=== PATIENT | female | born 1990 | race Caucasian/White ===

== ENCOUNTER 2022-05-02 08:30 | Outpatient (CLI) | payer OTHER, SELFPAY ==
--- NOTE | 2022-05-02 08:47 | CT_ITS ---
WS: [id number] CT HEAD TECHNIQUE: Noncontrast and contrast-enhanced CT of the head. CLINICAL INFORMATION: WORST HEADACHE OF LIFE COMPARISON: None. DLP: 2079.[address] scans at [facility] use at least one of these dose optimization techniques: automated e xposure control; mA and/or kV adjustment per patient size (includes targeted exams where dose is matc hed to clinical indication); or iterative reconstruction. FINDINGS: No evidence of intracranial hemorrhage or mass effect. Ventricular system and basal cisterns are beltran nt. Normal gu-white differentiation. No hydrocephalus. No abnormal intracranial enhancement. Normal visualized dural venous sinuses. Mastoid air cells and p aranasal sinuses are well aerated. Normal posterior nasopharynx. CT/CT head wo/w con [id number] IMPRESSION: 1. No evidence of intracranial hemorrhage or mass effect. 2. Normal gu-white differentiation. 3. No abnormal intracranial enhancement. 4. Normal visualized dural venous sinuses. 5. No acute intracranial findings.
[2022-05-02] MEDS: iohexol 350 mg/mL 100 mL Btl IV (09:00)
== END 2022-05-02 08:31 | disposition home or self-care (01) ==
PROVIDERS: Visit Provider Family Medicine
DX: R51.9 Headache, unspecified (principal)
CPT/HCPCS: 70470

== ENCOUNTER → 2022-12-02 08:03 | Outpatient (BNVA) | payer OTHER, SELFPAY | PROVIDERS: Visit Provider Podiatrist Foot & Ankle Surgery | DX: M76.61 Achilles tendinitis, right leg (principal); M92.61 Juvenile osteochondrosis of tarsus, right ankle | CPT/HCPCS: 73610 ==

== ENCOUNTER → 2023-10-10 09:09 | Outpatient (BNVA) | payer OTHER, SELFPAY | PROVIDERS: Visit Provider Family Medicine | DX: R20.0 Anesthesia of skin (principal); R20.2 Paresthesia of skin; Z86.39 Personal history of other endocrine, nutritional and metabolic disease | CPT/HCPCS: 80053; 80061; 82306; 82607; 82746; 83550; 84439; 84443; 85025; 86376 ==

== ENCOUNTER → 2024-03-02 16:06 | Outpatient (BNVA) | payer OTHER, SELFPAY | PROVIDERS: Visit Provider Emergency Medicine | DX: S99.921A Unspecified injury of right foot, initial encounter (principal); W22.8XXA Striking against or struck by other objects, initial encounter | CPT/HCPCS: 73630 ==

== ENCOUNTER 2024-03-17 11:58 | Outpatient (CLI) | payer OTHER, SELFPAY ==
--- NOTE | 2024-03-17 12:15 | US_ITS ---
WS: [id number] US pelv w/transvag [id number] HISTORY: O00.90 - Unspecified ectopic without intrauteri... COMPARISON: None available. Uterus: 8.4 cm x 5.2 cm x 5.2 cm. Uterus is retroverted. There is an intrauterine gestational sac. Within the gestational sac is a feta l pole with a crown-rump length measuring 0.5 cm corresponding to a gestation of 6 weeks and 1 day. F etal heart rate 112 bpm. No free fluid in the cul-de-sac. Neither adnexa is very well visualized due to the GI tract content. Neither ovary is visualized. US/US pelv w/transvag [id number] IMPRESSION: Intrauterine gestation 6 weeks 1 day with an EDC of 11/09/2024. Normal cardiac activity. No adnexal mass.
== END 2024-03-17 11:59 | disposition home or self-care (01) ==
LOC: RAD 11:59
PROVIDERS: PCP Family Medicine; Visit Provider Obstetrics & Gynecology
DX: Z34.91 Encounter for supervision of normal pregnancy, unspecified, first trimester (principal); Z3A.01 Less than 8 weeks gestation of pregnancy
CPT/HCPCS: 76830; 76856; 81025

== ENCOUNTER → 2024-04-14 09:05 | Outpatient (BNVA) | payer OTHER, SELFPAY | PROVIDERS: PCP Family Medicine; Visit Provider Obstetrics & Gynecology | DX: Z34.90 Encounter for supervision of normal pregnancy, unspecified, unspecified trimester (principal); Z3A.00 Weeks of gestation of pregnancy not specified | CPT/HCPCS: 80307; 85025; 86592; 86762; 86803; 86850; 86900; 87086; 87340; 87491; 87591; 87806 ==

== ENCOUNTER → 2024-05-11 08:06 | Outpatient (BNVA) | payer OTHER, SELFPAY | PROVIDERS: PCP Family Medicine; Visit Provider Obstetrics & Gynecology | DX: Z34.90 Encounter for supervision of normal pregnancy, unspecified, unspecified trimester (principal); Z3A.00 Weeks of gestation of pregnancy not specified | CPT/HCPCS: 84315; 87624 ==

== ENCOUNTER → 2024-06-24 10:28 | Outpatient (BNVA) | payer OTHER, SELFPAY | PROVIDERS: PCP Family Medicine; Visit Provider Obstetrics & Gynecology | DX: Z36.2 Encounter for other antenatal screening follow-up (principal); Z3A.20 20 weeks gestation of pregnancy | CPT/HCPCS: 76805 ==

== ENCOUNTER 2024-07-09 07:49 | Outpatient (RCR) | payer OTHER, SELFPAY | END 2024-07-12 23:59 | disposition home or self-care (01) | LOC: SPT 07:49 | PROVIDERS: PCP Family Medicine; Visit Provider Obstetrics & Gynecology | DX: M25.559 Pain in unspecified hip (principal) | CPT/HCPCS: 97161 ==

== ENCOUNTER 2024-07-13 06:00 | Outpatient (RCR) | payer OTHER, SELFPAY | END 2024-08-12 23:59 | disposition home or self-care (01) | LOC: SPT 06:00 | PROVIDERS: PCP Family Medicine; Visit Provider Obstetrics & Gynecology | DX: M25.552 Pain in left hip (principal) | CPT/HCPCS: 97110 ==

== ENCOUNTER → 2024-08-18 09:01 | Outpatient (BNVA) | payer OTHER, SELFPAY | PROVIDERS: PCP Family Medicine; Visit Provider Obstetrics & Gynecology | DX: Z34.90 Encounter for supervision of normal pregnancy, unspecified, unspecified trimester (principal); Z3A.00 Weeks of gestation of pregnancy not specified | CPT/HCPCS: 82950; 84315 ==

== ENCOUNTER → 2024-09-07 08:10 | Outpatient (BNVA) | payer OTHER, SELFPAY | PROVIDERS: PCP Family Medicine; Visit Provider Obstetrics & Gynecology | DX: Z34.90 Encounter for supervision of normal pregnancy, unspecified, unspecified trimester (principal); Z3A.00 Weeks of gestation of pregnancy not specified | CPT/HCPCS: 82951; 82952 ==

== ENCOUNTER → 2024-09-15 15:27 | Outpatient (BNVA) | payer OTHER, SELFPAY | PROVIDERS: PCP Family Medicine; Visit Provider Nurse Practitioner Women's Health | DX: Z34.93 Encounter for supervision of normal pregnancy, unspecified, third trimester (principal); Z3A.34 34 weeks gestation of pregnancy | CPT/HCPCS: 76816 ==

== ENCOUNTER → 2024-09-29 08:47 | Outpatient (BNVA) | payer OTHER, SELFPAY | PROVIDERS: PCP Family Medicine; Visit Provider Nurse Practitioner Women's Health | DX: Z34.80 Encounter for supervision of other normal pregnancy, unspecified trimester (principal); Z3A.00 Weeks of gestation of pregnancy not specified | CPT/HCPCS: 84315; 87086 ==

== ENCOUNTER 2024-10-11 09:18 | Outpatient (CLI) | payer OTHER, SELFPAY ==
[2024-10-11] VITALS (8 sets, daily range): BP systolic 120–135; BP diastolic 78–101; PULSE 100–120; BMI 31.9
== END 2024-10-11 12:13 | disposition home or self-care (01) ==
LOC: OPOB 09:27 → OBGYN 09:28
PROVIDERS: PCP Family Medicine; Visit Provider Obstetrics & Gynecology
DX: O16.9 Unspecified maternal hypertension, unspecified trimester (principal); O26.851 Spotting complicating pregnancy, first trimester; Z3A.00 Weeks of gestation of pregnancy not specified
CPT/HCPCS: 59025; 99211

== ENCOUNTER → 2024-10-12 09:20 | Outpatient (BNVA) | payer OTHER, SELFPAY | PROVIDERS: PCP Family Medicine; Visit Provider Nurse Practitioner Women's Health | DX: O26.893 Other specified pregnancy related conditions, third trimester (principal); Z3A.35 35 weeks gestation of pregnancy | CPT/HCPCS: 76816 ==

== ENCOUNTER 2024-10-14 09:31 | Outpatient (CLI) | payer OTHER, SELFPAY ==
[2024-10-14 09:30] VITALS: RESP 17; BMI 32.1
[2024-10-14 09:40] VITALS: BP 143/88; PULSE 109
[2024-10-14 09:56] VITALS: BP 130/83; PULSE 94
[2024-10-14 10:11] VITALS: BP 131/77; PULSE 101
[2024-10-14 10:26] VITALS: BP 108/72; PULSE 91
== END 2024-10-14 10:35 | disposition home or self-care (01) ==
LOC: OPOB 09:31 → OBGYN 09:32
PROVIDERS: PCP Family Medicine; Visit Provider Obstetrics & Gynecology
DX: O16.9 Unspecified maternal hypertension, unspecified trimester (principal); Z3A.00 Weeks of gestation of pregnancy not specified
CPT/HCPCS: 59025; 99211

== ENCOUNTER 2024-10-18 10:16 | Outpatient (CLI) | payer OTHER, SELFPAY ==
[2024-10-18 10:23] VITALS: RESP 18
[2024-10-18 10:24] VITALS: BMI 32.1
[2024-10-18 10:25] VITALS: BP 134/86; PULSE 97
[2024-10-18 10:46] VITALS: BP 130/89; PULSE 100
[2024-10-18 10:55] VITALS: RESP 18
== END 2024-10-18 10:57 | disposition home or self-care (01) ==
LOC: OPOB 10:18 → OBGYN 10:21
PROVIDERS: PCP Family Medicine; Visit Provider Obstetrics & Gynecology
DX: O16.9 Unspecified maternal hypertension, unspecified trimester (principal); Z3A.00 Weeks of gestation of pregnancy not specified
CPT/HCPCS: 59025; 80053; 84315; 85025; 87081

== ENCOUNTER 2024-10-21 11:45 | Outpatient (CLI) | payer OTHER, SELFPAY ==
[2024-10-21 11:50] VITALS: BP 143/90; PULSE 94
[2024-10-21 11:52] VITALS: BMI 32.1
[2024-10-21 12:05] VITALS: BP 137/84; PULSE 99
[2024-10-21 12:20] VITALS: BP 132/82; PULSE 93
[2024-10-21 12:22] VITALS: BP 132/82; PULSE 83
[2024-10-21 12:38] LABS: Urine Total Protein 7.2 mg/dL (0-150)
[2024-10-21 12:40] LABS: Total Volume, Urine 1500 mL
== END 2024-10-21 12:25 ==
LOC: OPOB 11:47 → OBGYN 11:47
PROVIDERS: PCP Family Medicine; Visit Provider Obstetrics & Gynecology
DX: O16.9 Unspecified maternal hypertension, unspecified trimester (principal); Z3A.00 Weeks of gestation of pregnancy not specified
CPT/HCPCS: 59025; 84156

== ENCOUNTER → 2024-10-26 15:02 | Outpatient (BNVA) | payer OTHER, SELFPAY | PROVIDERS: PCP Family Medicine; Visit Provider Obstetrics & Gynecology | DX: Z34.80 Encounter for supervision of other normal pregnancy, unspecified trimester (principal) | CPT/HCPCS: 84315 ==

== ENCOUNTER 2024-10-28 09:05 | Outpatient (CLI) | payer OTHER, SELFPAY ==
[2024-10-28] VITALS (12 sets, daily range): BP systolic 125–144; BP diastolic 77–97; PULSE 92–113; RESP 17; BMI 32.1
== END 2024-10-28 11:47 | disposition home or self-care (01) ==
LOC: OPOB 09:06 → OBGYN 09:07
PROVIDERS: PCP Family Medicine; Visit Provider Obstetrics & Gynecology
DX: O16.9 Unspecified maternal hypertension, unspecified trimester (principal); Z3A.00 Weeks of gestation of pregnancy not specified
CPT/HCPCS: 59025; 99211

== ENCOUNTER 2024-10-28 18:18 | Inpatient (IN) | payer OTHER, SELFPAY ==
[2024-10-28] VITALS (11 sets, daily range): BP systolic 128–153; BP diastolic 88–99; PULSE 89–111; BMI 71.1
[2024-10-28 19:02] LABS: Basophils % 0.2 %; Eosinophils % 0.5 %; Hematocrit 36.6 % (36-47); Lymphocytes # 2.1 10^3/uL (0.8-4.8); Lymphocytes % 26.2 %; Mean Corpuscular HGB Conc 33.3 g/dL (30-55); Mean Corpuscular Hemoglobin 27.9 pg (27-33); Mean Corpuscular Volume 83.8 fl (85-98); Mean Platelet Volume 10.5 fL (7.4-10.4); Monocytes # 0.7 10^3/uL (0.2-0.9); Monocytes % 8.1 %; Neutrophils # 5.24 10^3/uL (1.8-7.7); Neutrophils % 64.6 %; Nucleated Red Blood Cells % 0 %; Platelet Count 302 10^3/cmm (157-399); Red Blood Count 4.37 10^6/uL (3.85-5.65); Red Cell Distribution Width 13.9 % (12.1-15.1); White Blood Count 8.12 10^3/uL (3.29-11.43)
--- NOTE | 2024-10-28 19:40 | PM.OBGYHP ---
Providers/Chief Complaint Admitting Physician: Toney Miles MD Primary AUTOMATIC VULCANIZING LEAD OPERATOR: Toney Miles MD Primary Care Provider: Pelon Grossman MD Chief Complaint: IOL HPI AUTOMATIC VULCANIZING LEAD OPERATOR History of Present Illness Vee Ryan is a 34 year old female A2 EDC November 10, 2024 At 38 w 1 d Has been followed for mildly elevated BPs Seen in L&D for BP check and NST today Found to have significantly elevated BPs Now admitted for induction of labor No c/o No headache, blurry vision, abdominal pain, swelling + active movements Present Details : 7 Para: 4 Labs Rubella: Immune RPR: Negative GBS: Negative Medications/Allergies Home Medications Medication Instructions Recorded Confirmed Last Taken Type PNV 153-FA 400 mcg-om3 35 mg-dha tab PO 08/18/24 10/26/24 Unknown History 25 mg-epa 5 mg-fish oil chew tablet ( Gummies) bromocriptine 5 mg capsule 5 mg PO BID #20 caps 10/30/24 Unknown Rx Allergies Allergy/AdvReac Type Severity Reaction Status Date / Time Penicillins Allergy rash Verified 10/26/24 12:53 Sulfa (Sulfonamide Allergy edema Verified 10/26/24 12:53 Antibiotics) PFSH AUTOMATIC VULCANIZING LEAD OPERATOR PFSH: Medical History Migraine headache with aura Surgical History H/O tubal ligation Status post labral repair of shoulder LEFT Family History Grandfather Cancer Paternal-unknown Grandfather Cancer Paternal-unknown Heart disease Stroke Mother Heart disease Hypertension Stroke Other Autoimmune disease Diabetes Denies family history of Colon cancer Ovarian cancer Breast cancer Uterine cancer Thyroid disease Social History Smoking and tobacco/nicotine status: never used tobacco/nicotine History History History 7 Term 4 0 Miscarriages/Ectopic 2 Living Children 4 Care YESSICA Calculator Estimated Delivery Date Method Current WG Current Estimate 11/10/24 LMP (Certain) 38w 4d Other Estimates 11/09/24 Ultrasound #1 38w 5d Specific Issues/Plans MIGRAINES WITH AURA S/P TUBAL LIGATION: Bilateral partial salpingectomy 08/09/19, patho report confirmed bilateral fallopian tubes removed Hx of GESTATIONAL HYPERTENSION: Hx of gestational HTN in x2, inductions at 36 and 37 weeks gestation ELEVATED 1 HOUR GLUCOSE TEST: 08/18/24 175, 3 hr test normal FUNDAL HEIGHT HIGH FOR DATES: measuring 3 cm ahead at 30 week and 34 week appt Vitals/I&O/Wt Last Vital Signs Temp 97.8 F 10/30/24 15:19 Pulse 95 10/30/24 15:19 Resp 16 10/30/24 15:19 BP 123/82 10/30/24 15:19 Pulse Ox 97 10/30/24 15:19 O2 Del Method Room Air 10/30/24 15:05 Physical Exam Narrative: Weight 200 lbs; 5?6? BP 135 / 97; 138 / 88; 144 / 91 General comfortable, awake, alert Lungs: clear Cor: RRR Abd: nontender FH 37 cm, cephalic Cervix: 2 / 50% / -3 Ext: no edema External monitor: heart tracing good variability, + accelerations Data 10/30/24 01:28 Results Labs OB ([facility]): Obstetrics US 10/12/24 Blood Type A Positive 10/28/24 Antibody Screen Negative 10/28/24 Hct 32.7 % (36-47) L 10/30/24 Hgb 10.60 g/dL (11.27-16.99) L 10/30/24 Rho(D) Type Rh positive 10/28/24 Plt Count 259 10^3/cmm (157-399) 10/30/24 Hep Bs Antigen Non-reactive (Nonreactive) 04/14/24 Hepatitis C Antibody Non-reactive (Nonreactive) 04/14/24 Rubella IgG Antibody 143.2 IU/mL (0.0-10.0) H 04/14/24 RPR Nonreactive (Nonreactive) 04/14/24 HIV 1&2 Ab & HIV 1 Ag Non-reactive (Non-Reactiv) 04/14/24 TSH 0.89 uIU/mL (0.27-4.20) 10/10/23 Free T4 1.28 ng/dL (0.82-1.77) 10/10/23 C.trachomatis RNA (TMA) Not detected (NOT DETECTED) 04/14/24 N.gonorrhoeae RNA (TMA) Not detected (NOT DETECTED) 04/14/24 T. vaginalis Amp RNA Not detected (NOT DETECTED) 04/14/24 Chlamydia/GC Comment See note 04/14/24 Cystic Fibrosis Screen Negative 04/14/24 Glucose 1 Hr 50 gm 175 mg/dL (85-140) H 08/18/24 Gest Glucose Tolerance mg/dL 09/07/24 HCG, Qual Positive (Negative) H 03/17/24 Urine Opiates Screen Negative ng/mL (Negative) 04/14/24 Ur Barbiturates Screen Negative ng/mL (Negative) 04/14/24 Ur Phencyclidine Scrn Negative ng/mL (Negative) 04/14/24 Ur Amphetamines Screen Negative ng/mL (Negative) 04/14/24 U Benzodiazepines Scrn Negative ng/mL (Negative) 04/14/24 Urine Cocaine Screen Negative ng/mL (Negative) 04/14/24 U Marijuana (THC) Screen Negative ng/mL (Negative) 04/14/24 Micro Urine Specimen 09/29/24 Pap Smear Interpret See note 05/11/24 A&P Assessment and plan (1) Encounter for induction of labor: 38 w 1 d Elevated BPs No associated severe features such as headache, swelling Plan admit for labor induction Attestations Medical Necessity Statement*: patient at 38 w 1 d with elevated BPs, admitted for induction of labor Coding Level of Care Code Acute Code for Chg Fwd Diagnoses Encounter for induction of labor Z34.90 Time Spent (min) 60
[2024-10-28] MEDS: calcium carbonate 500 mg Chew Tablet 1000 MG PO (22:15)
[2024-10-29] VITALS (32 sets, daily range): BP systolic 116–157; BP diastolic 69–104; PULSE 80–110; RESP 15–17; TEMP 36.6–36.9; O2SAT 96–97
[2024-10-29] MEDS: alum-mag-hydroxide-sime 30 mL UDC PO (03:10)
--- NOTE | 2024-10-29 03:15 | P.PN_ITS ---
[employer] ARCHITECT Subjective 2 Subjective: Interval history: Fetus reassuring Having mild ? moderate uterine contractions Cervix: 3-4 cm / 75% / -3 Labor: Station: -1 Amniotic Membrane Status: Ruptured Monitor Mode: External Contraction Pattern: Irregular Status: Category I Vitals/I&O/Wt Last Vital Signs Temp 97.8 F 10/30/24 15:19 Pulse 95 10/30/24 15:19 Resp 16 10/30/24 15:19 BP 123/82 10/30/24 15:19 Pulse Ox 97 10/30/24 15:19 O2 Del Method Room Air 10/30/24 15:05 Data 10/30/24 01:28 A&P Assessment and plan (1) Encounter for induction of labor: Attestations 2 Medical Necessity Statement*: patient at 38 w 1 d with elevated BPs, admitted for induction of labor Coding Level of Care Code Acute Code for Chg Fwd Diagnoses Encounter for induction of labor Z34.90 Time Spent (min) 20
[2024-10-29] MEDS: miSOPROStol 100 mcg tablet 25 MCG VAGINAL (04:24)
--- NOTE | 2024-10-29 12:05 | PM.OBGYPN ---
DIRECTOR OF CURRICULUM AND INSTRUCTION Subjective Subjective: Interval history: Fetus reassuring Cervix: 4-5 cm / 75% / -2 AROM, clear fluid Labor: Station: -1 Amniotic Membrane Status: Ruptured Monitor Mode: External Contraction Pattern: Irregular Status: Category I Vitals/I&O/Wt Last Vital Signs Temp 97.8 F 10/30/24 15:19 Pulse 95 10/30/24 15:19 Resp 16 10/30/24 15:19 BP 123/82 10/30/24 15:19 Pulse Ox 97 10/30/24 15:19 O2 Del Method Room Air 10/30/24 15:05 Data 10/30/24 01:28 A&P Assessment and plan (1) Encounter for induction of labor: Attestations Medical Necessity Statement*: patient at 38 w 1 d with elevated BPs, admitted for induction of labor Coding Level of Care Code Acute Code for Chg Fwd Diagnoses Encounter for induction of labor Z34.90 Time Spent (min) 30
[2024-10-29] MEDS: hyDROXYzine 25 mg Capsule 50 MG PO (13:05)
--- NOTE | 2024-10-29 13:10 | PC.NURSE ---
While pt standing at the side of the tub with at her side, this nurse requests if she would come to the bedside so I could monitor baby and contractions while she stood at bedside. Pt refused and said she would be staying there. This nurse verbalized understanding and instructed the to pull the emergency light cord next to toilet if immediate assistance were needed, verbalized understanding.
--- NOTE | 2024-10-29 13:45 | PM.DELIVERY ---
Delivery Note: Date of delivery: October 29, 2024 Pre-delivery diagnoses: 38 w 1 d elevated BPs induction of labor Post-delivery diagnoses: 38 w 1 d elevated BPs induction of labor vaginal delivery Procedure: induction of labor vaginal delivery Op report anesthesia: None Delivering Physician: Toney Miles MD Estimated blood loss (mL): 300 Findings: , vigorous Normal placenta and cord No episiotomy / lacerations EBL: 300 cc No complications Pre-Delivery Course: normal labor course fetus reassuring throughout Delivery: vaginal Post-Delivery Status: good History History History 7 Term 4 0 Miscarriages/Ectopic 2 Living Children 4 A&P Assessment and plan (1) Vaginal delivery: Coding Level of Care Code Acute Code for Chg Fwd Diagnoses Vaginal delivery O80 Time Spent (min) 60
[2024-10-29] MEDS: ibuprofen 800 mg tablet PO ×2 (14:38→20:07)
[2024-10-29] MEDS: lidocaine 2% INJ 20 mL INJECTION (14:45)
[2024-10-29] MEDS: docusate sodium 100 mg Capsule PO (20:07)
[2024-10-29] MEDS: HYDROcodone-acetaminophen 5-325 mg Tablet PO (21:41)
[2024-10-30] MEDS: acetaminophen 325 mg Tablet 650 MG PO ×2 (01:29→12:30)
[2024-10-30 01:59] LABS: Hematocrit 32.7 % (36-47); Mean Corpuscular HGB Conc 32.4 g/dL (30-55); Mean Corpuscular Volume 86.5 fl (85-98); Platelet Count 259 10^3/cmm (157-399); Red Blood Count 3.78 10^6/uL (3.85-5.65); Red Cell Distribution Width 14.2 % (12.1-15.1); White Blood Count 11.01 10^3/uL (3.29-11.43)
[2024-10-30 04:48] VITALS: BP 121/79; PULSE 86; RESP 16; TEMP 36.7; O2SAT 97
[2024-10-30] MEDS: ibuprofen 800 mg tablet PO (08:10)
[2024-10-30] MEDS: PRENATAL VIT NO.130/IRON/FOLIC 1 EACH TABLET PO (08:10)
[2024-10-30] MEDS: docusate sodium 100 mg Capsule PO (08:10)
[2024-10-30 10:30] VITALS: BP 144/93; PULSE 96; RESP 17; TEMP 36.9; O2SAT 98
--- NOTE | 2024-10-30 12:25 | PM.OBGYPN ---
PRINTING MACHINE OPERATOR TAPE RULES Subjective Subjective: Interval history: no c/o no bleeding, pain eating, voiding, ambulating well caring for without any problems Labor: Station: -1 Amniotic Membrane Status: Ruptured Monitor Mode: External Contraction Pattern: Irregular Status: Category I Vitals/I&O/Wt Last Vital Signs Temp 97.8 F 10/30/24 15:19 Pulse 95 10/30/24 15:19 Resp 16 10/30/24 15:19 BP 123/82 10/30/24 15:19 Pulse Ox 97 10/30/24 15:19 O2 Del Method Room Air 10/30/24 15:05 Physical Exam Narrative: afebrile, VS normal comfortable, awake, alert Abd: soft, nontender. fundus firm Ext: no edema; nontender Data 10/30/24 01:28 A&P Assessment and plan (1) Vaginal delivery: PPD #1 doing well discharge to home today instructions and precautions given call/return if fever, chills, headache, blurry vision, nausea, vomiting, abdominal pain; vaginal bleeding or discharge; shortness of breath, chest pain, leg pains or swelling; inability to void, perineal pain or swelling; feelings of depression or mood changes; thoughts of suicide or harming others; inability to care for baby. f/u in 6 weeks or PRN Attestations Medical Necessity Statement*: patient s/p vaginal delivery, plan to discharge to home today Coding Level of Care Code Acute Code for Chg Fwd Diagnoses Vaginal delivery O80 Time Spent (min) 20
--- NOTE | 2024-10-30 12:30 | PM.OBGYDC ---
Discharge Providers SUPPLEMENTAL NURSE Date of Admission: 10/28/24 18:18 Date of Discharge: 10/30/24 Attending Provider at Admission: Toney Miles MD Attending Provider at Discharge: Toney Miles MD Consults: none Primary SUPPLEMENTAL NURSE: Toney Miles MD Primary Care Provider: Pelon Grossman MD Diagnoses at Discharge Discharge Diagnosis (1) Vaginal delivery: Details from hospital stay: 34 y.o. A2 EDC November 10, 2024 At 38 w 1 d Has been followed for mildly elevated BPs Seen in L&D for BP check and NST on October 28, 2023 Found to have significantly elevated BPs diagnosed with mild preeclampsia without severe features patient was admitted for induction of labor patient was given one dose of cytotec 25 ug intravaginal fetus was reassuring throughout She proceeded to have vaginal delivery without any complications; there were no lacerations patient did well and was discharged to home on the first day Status: Acute Reason for Visit Reason for Visit: IOL Brief History: 34 y.o. A2 EDC November 10, 2024 At 38 w 1 d Has been followed for mildly elevated BPs Seen in L&D for BP check and NST on October 28, 2023 Found to have significantly elevated BPs diagnosed with mild preeclampsia without severe features patient was admitted for induction of labor Hospital Course Hospital Course 34 y.o. A2 EDC November 10, 2024 At 38 w 1 d Has been followed for mildly elevated BPs Seen in L&D for BP check and NST on October 28, 2023 Found to have significantly elevated BPs diagnosed with mild preeclampsia without severe features patient was admitted for induction of labor patient was given one dose of cytotec 25 ug intravaginal fetus was reassuring throughout She proceeded to have vaginal delivery without any complications; there were no lacerations patient did well and was discharged to home on the first day Information Peripartum Data: Delivery Method: Vaginal Laceration description: None Episiotomy description: None complications: none Physical Exam Narrative: afebrile, VS normal comfortable, awake, alert Abd: soft, nontender. fundus firm Ext: no edema; nontender History History History 7 Term 4 0 Miscarriages/Ectopic 2 Living Children 4 Discharge Data Studies Completed and Pending Laboratory Results WBC 11.01 10^3/uL (3.29-11.43) 10/30/24: RBC 3.78 10^6/uL (3.85-5.65) L 10/30/24: Hgb 10.60 g/dL (11.27-16.99) L 10/30/24: Hct 32.7 % (36-47) L 10/30/24: MCV 86.5 fl (85-98) 10/30/24: MCH 28.0 pg (27-33) 10/30/24: MCHC 32.4 g/dL (30-55) 10/30/24: RDW 14.2 % (12.1-15.1) 10/30/24: Plt Count 259 10^3/cmm (157-399) 10/30/24: MPV 11.0 fL (7.4-10.4) H 10/30/24: Neut % (Auto) 64.6 % 10/28/24 18:40 Lymph % (Auto) 26.2 % 10/28/24 18:40 Stevens % (Auto) 8.1 % 10/28/24 18:40 Eos % (Auto) 0.5 % 10/28/24 18:40 Baso % (Auto) 0.2 % 10/28/24 18:40 Neut # (Auto) 5.24 10^3/uL (1.8-7.7) 10/28/24 18:40 Lymph # (Auto) 2.1 10^3/uL (0.8-4.8) 10/28/24 18:40 Stevens # (Auto) 0.7 10^3/uL (0.2-0.9) 10/28/24 18:40 Eos # (Auto) 0.0 10^3/uL (0.0-0.8) 10/28/24 18:40 Baso # (Auto) 0.0 10^3/uL (0.0-0.1) 10/28/24 18:40 Nucleated RBC % (auto) 0 % 10/28/24 18:40 Nucleated RBCs # 0.0 /100WBC 10/28/24 18:40 Blood Type A Positive 10/28/24 18:40 Rho(D) Type Rh positive 10/28/24 18:40 Antibody Screen Negative 10/28/24 18:40 Procedures Performed induction of labor vaginal delivery Vitals Last Vital Signs Temp 97.8 F 10/30/24 15:19 Pulse 95 10/30/24 15:19 Resp 16 10/30/24 15:19 BP 123/82 10/30/24 15:19 Pulse Ox 97 10/30/24 15:19 O2 Del Method Room Air 10/30/24 15:05 Results Labs OB ([facility]): Obstetrics US 10/12/24 Blood Type A Positive 10/28/24 Antibody Screen Negative 10/28/24 Hct 32.7 % (36-47) L 10/30/24 Hgb 10.60 g/dL (11.27-16.99) L 10/30/24 Rho(D) Type Rh positive 10/28/24 Plt Count 259 10^3/cmm (157-399) 10/30/24 Hep Bs Antigen Non-reactive (Nonreactive) 04/14/24 Hepatitis C Antibody Non-reactive (Nonreactive) 04/14/24 Rubella IgG Antibody 143.2 IU/mL (0.0-10.0) H 04/14/24 RPR Nonreactive (Nonreactive) 04/14/24 HIV 1&2 Ab & HIV 1 Ag Non-reactive (Non-Reactiv) 04/14/24 TSH 0.89 uIU/mL (0.27-4.20) 10/10/23 Free T4 1.28 ng/dL (0.82-1.77) 10/10/23 C.trachomatis RNA (TMA) Not detected (NOT DETECTED) 04/14/24 N.gonorrhoeae RNA (TMA) Not detected (NOT DETECTED) 04/14/24 T. vaginalis Amp RNA Not detected (NOT DETECTED) 04/14/24 Chlamydia/GC Comment See note 04/14/24 Cystic Fibrosis Screen Negative 04/14/24 Glucose 1 Hr 50 gm 175 mg/dL (85-140) H 08/18/24 Gest Glucose Tolerance mg/dL 09/07/24 HCG, Qual Positive (Negative) H 03/17/24 Urine Opiates Screen Negative ng/mL (Negative) 04/14/24 Ur Barbiturates Screen Negative ng/mL (Negative) 04/14/24 Ur Phencyclidine Scrn Negative ng/mL (Negative) 04/14/24 Ur Amphetamines Screen Negative ng/mL (Negative) 04/14/24 U Benzodiazepines Scrn Negative ng/mL (Negative) 04/14/24 Urine Cocaine Screen Negative ng/mL (Negative) 04/14/24 U Marijuana (THC) Screen Negative ng/mL (Negative) 04/14/24 Micro Urine Specimen 09/29/24 Pap Smear Interpret See note 05/11/24 Discharge Plan Discharge Patient Disposition: Home Condition: Stable Prescriptions: New bromocriptine 5 mg capsule 5 mg PO BID Qty: 20 0RF Rx Instructions: must administer with a meal/food Continued Gummies 400 mcg-35 mg- 25 mg-5 mg tablet,chewable PO Discontinued nifedipine [Procardia XL] 30 mg tablet extended release 24hr 30 mg PO DAILY Qty: 30 1RF Discharge Orders: Discharge Order (Routine); Ordered 10/30/24 Ordered By: Toney Miles Referrals: Toney Miles MD [Physician] - 6 Weeks (Please call Friday to set up a follow up appointment to see Dr. Miles in 6 weeks.) Discharge Diet: Usual diet Discharge Activity: Increase activity as tolerated Patient Instructions: Depression (DC), Opioid Safety (DC), Preeclampsia and Eclampsia After Delivery (GEN), Hemorrhage (DC), OB Discharge Report, OB Food/Drug Interaction Guide, Opioid Safety, OB Home Care, OB Vaginal Deliveries - [facility], Abnormal Bleeding Discharge Attestations SUPPLEMENTAL NURSE Time Spent in Discharge Care*: less than 30 min Coding Level of Care Code Acute Code for Chg Fwd Diagnoses Vaginal delivery O80 Time Spent (min) 20
[2024-10-30 15:05] VITALS: BP 123/82; PULSE 95; RESP 16; TEMP 36.6; O2SAT 97
[2024-10-30 15:19] VITALS: BP 123/82; PULSE 95; RESP 16; TEMP 36.6; O2SAT 97
== END 2024-10-30 15:19 | disposition home or self-care (01) | DRG 807 ==
LOC: OPOB 18:18 → OBGYN 18:18
PROVIDERS: Admitting Provider Obstetrics & Gynecology; PCP Family Medicine; Visit Provider Obstetrics & Gynecology
DX: O13.4 Gestational [pregnancy-induced] hypertension without significant proteinuria, complicating childbirth (principal); Z37.0 Single live birth; Z3A.38 38 weeks gestation of pregnancy; O75.89 Other specified complications of labor and delivery; G43.109 Migraine with aura, not intractable, without status migrainosus
CPT/HCPCS: 36415; 59025; 59409; 85025; 85027; 86850; 86900; 99211

== ENCOUNTER 2024-12-27 10:10 | Outpatient (CLI) | payer OTHER, SELFPAY ==
--- NOTE | 2024-12-27 10:17 | XRR_ITS ---
PROCEDURE INFORMATION: Exam: XR Left Hip Exam date and time: 12/27/2024 10:36 AM Age: 34 years old Clinical indication: No specific injury, left hip pain x1 year in joint TECHNIQUE: Imaging protocol: Radiologic exam of the left hip. Views: 2 or 3 views hip with pelvis when performed. COMPARISON: US pelv w/transvag [id number] 03/17/2024 12:22 PM FINDINGS: Bones/joints: No acute fracture or malalignment. No worrisome lytic or blastic osseous lesion. No appreciable cortical erosion or periosteal reaction. Joint spaces are preserved. Soft tissues: No appreciable radiopaque foreign body or gas. XR/XR hip LT 2-3V wo/w pel* [id number] IMPRESSION: No acute fracture or malaligment.
== END 2024-12-27 10:11 | disposition home or self-care (01) ==
LOC: RAD 10:13
PROVIDERS: PCP Family Medicine; Visit Provider Family Medicine
DX: G43.109 Migraine with aura, not intractable, without status migrainosus (principal)
CPT/HCPCS: 73502

== ENCOUNTER → 2025-01-10 07:59 | Outpatient (BNVA) | payer OTHER, SELFPAY | PROVIDERS: PCP Family Medicine; Visit Provider Nurse Practitioner | DX: M25.552 Pain in left hip (principal); R29.4 Clicking hip | CPT/HCPCS: 73502 ==

== ENCOUNTER 2025-01-14 10:04 | Outpatient (CLI) | payer OTHER, SELFPAY ==
--- NOTE | 2025-01-14 10:15 | MR_ITS ---
WS: [id number] EXAMINATION: MR hip LT wo con* [id number] ORDER DATE: 01/14/2025 10:14 AM COMPARISON: None. HISTORY: left hip pain CONTRAST: None. TECHNIQUE: Coronal STIR of the Pelvis. Coronal proton density, coronal T1, axial T2 fat sat, axial T1, sagittal T2 fat sat, and sagittal T1 performed of the hip FINDINGS: Normal bone marrow signal in the sacrum and bony pelvis. Normal bone marrow signal in the femoral heads and necks bilaterally. Normal bone marrow signal in the pubic rami and acetabulum. No acute fractures. No evidence of avascular necrosis. No edema in the sacroiliac joints. Trace edema about the LEFT greater trochanter can be seen with trochanteric bursitis. No significant surrounding edema. Slightly heterogeneous bone marrow signal can be seen with anemia and smoking. MR/MR hip LT wo con* [id number] IMPRESSION: 1. Normal bone marrow signal in the bony pelvis and sacrum. No acute fractures . 2. Normal LEFT femoral head and neck. No evidence of avascular necrosis. 3. RIGHT hip is normal in appearance. 4. Tiny trace of edema about the LEFT greater trochanter can be seen with troc hanteric bursitis. No fluid collections.
== END 2025-01-14 10:05 | disposition home or self-care (01) ==
PROVIDERS: PCP Family Medicine; Visit Provider Nurse Practitioner
DX: M25.552 Pain in left hip (principal)
CPT/HCPCS: 73721

== ENCOUNTER → 2025-02-11 12:02 | Outpatient (BNVA) | payer OTHER, BC, MEDICAID, SELFPAY | PROVIDERS: PCP Family Medicine; Visit Provider Specialist | DX: R29.4 Clicking hip (principal); M25.552 Pain in left hip | CPT/HCPCS: 77002 ==

== ENCOUNTER 2025-02-15 06:17 | Day surgery (SDC) | payer OTHER, BC, MEDICAID, SELFPAY ==
--- NOTE | 2025-02-14 22:12 | P.HP_ITS ---
Same Day Surgery H&P Indication for Procedure/HPI DATE OF PROCEDURE: February 14, 2025 CHIEF COMPLAINT/INDICATIONFOR SURGICAL PROCEDURE: desires permanent sterilization PREOP DIAGNOSIS: desires permanent sterilization PLANNED PROCEDURE: Operation Date: 02/15/25 07:50 Proposed Procedures p Laparoscopic Salpingectomy 10845, Z30.2(Bilateral) - Toney Miles MD Medications/Allergies* Home Medications ?Medication ?Instructions ?Recorded ?Confirmed ?Type sumatriptan succinate 50 mg tablet 50 mg PO DIRECTE D 02/14/25 02/14/25 History Allergies/Adverse Reactions Allergy/AdvReac Type Severity Reaction Status Date / Time Penicillins Allergy rash Verified 02/11/25 12:06 Sulfa (Sulfonamide Allergy edema Verified 02/11/25 12:06 Antibiotics) Pertinent History/Comorbid Conditions* Medical History (Updated 01/15/25 @ 17:10 by Janeth Valenzuela TURN OUT-) Clicking of left hip Vaginal delivery Encounter for induction of labor Migraine headache with aura Surgical History (Updated 10/10/23 @ 08:32 by Pelon Grossman MD) H/O tubal ligation Status post labral repair of shoulder LEFT Family History (Updated 03/17/24 @ 09:25 by Jany Brock LPN) Diabetes Autoimmune disease Heart disease Grandfather Mother Cancer Grandfather Paternal-unknown Grandfather Paternal-unknown Hypertension Mother Stroke Grandfather Mother Denies family history of Colon cancer Ovarian cancer Breast cancer Uterine cancer Thyroid disease Social History Smoking and tobacco/nicotine status: never used tobacco/nicotine Pertinent Exam Findings alert, oriented x 3, clear to auscultation bilaterally and regular rate & rhythm Recommendations Surgery/Procedure today Coding Level of Care Code Acute Code for Chg Fwd
[2025-02-15] VITALS (8 sets, daily range): BP systolic 130–155; BP diastolic 91–101; PULSE 59–86; RESP 16–18; TEMP 36.1–36.4; O2SAT 94–99; BMI 27.7
[2025-02-15] MEDS: sodium chloride 0.9% 1,000 ML 30 ML IV (06:40)
[2025-02-15 06:57] LABS: OR HCG Qualitative Urine Negative (Negative)
[2025-02-15] MEDS: scopolamine 1 mg PATCH 1 PATCH TRANSDERMA (06:58)
--- NOTE | 2025-02-15 06:58 | W.PM.OPSUD ---
Surgery/Procedure H&P Update DATE OF PROCEDURE: February 15, 2025 DATE H&P PERFORMED: 02/15/25 H&P UPDATE INFORMATION: I have reviewed H&P completed within last 30 days, I have examined patient prior to procedure and No changes to prior documentation PREOP DIAGNOSIS: desires permanent sterilization PLANNED PROCEDURE: Operation Date: 02/15/25 07:50 Proposed Procedures p Laparoscopic Salpingectomy 35154, Z30.2(Bilateral) - Toney Miles MD
--- NOTE | 2025-02-15 07:18 | P.ANESASSM_ITS ---
Pre-Anesthetic Assessment Height/Weight: Height 1.68 m Weight 78.018 kg Temp Pulse Resp BP Pulse Ox O2 Del Method 97.3 F L 74 18 147/98 99 Room Air 02/15/25 06:34 02/15/25 06:34 02/15/25 06:34 02/15/25 06:34 02/15/25 06:34 02/15/25 06:35 Preop Diagnosis: desires permanent sterilization Operation Date: 02/15/25 07:50 Proposed Procedures p Laparoscopic Salpingectomy 76355, Z30.2(Bilateral) - Toney Miles MD Familial anesthetic complications: none Was Beta Bren taken within 24 hours: N/A Was Clonidine taken within 24 hours: N/A Last intake: Intake Last Liquid Date 02/14/25 Last Liquid Time 21:00 Last Solid Date 02/14/25 Last Solid Time 21:00 Last Intake: 21:00 Social No alcohol and No tobacco Exam alert, oriented x 3, clear to auscultation bilaterally and regular rate & rhythm Airway Submandibular: within normal limits Cervical ROM: within normal limits Mallampati: Class II Dentition: full History/ROS No significant history except as noted Pulmonary None reported CV/HEM None reported None reported Hepatic None reported GI None reported Metabolic None reported Musc/skel None reported Neuropsych None reported Anesthetic Plan ASA status: 1 Anesthesia: General Risk of > 500 ml blood loss (7ml/kg in children): No Medications/Allergies Home Medications ?Medication ?Instructions ?Recorded ?Confirmed ?Last Taken ?Type norgestimate 0.25 mg-ethinyl 1 tab PO DAILY #84 tabs 0 12/09/24 02/14/25 01/27/25 Rx estradiol 35 mcg tablet (Sprintec (28)) diclofenac sodium 1 % topical gel 4 g topical QID #100 grams 01/10/25 02/15/25 Unknown Rx sumatriptan succinate 50 mg tablet 50 mg PO DIRECTE D 02/14/25 02/15/25 Unknown History Allergies Allergy/AdvReac Type Severity Reaction Status Date / Time Penicillins Allergy rash Verified 02/11/25 12:06 Sulfa (Sulfonamide Allergy edema Verified 02/11/25 12:06 Antibiotics) Current Medications Generic Name Dose Route Start Last Admin Trade Name Freq PRN Reason Stop Dose Admin Sodium Chloride 1,000 mls @ 30 mls/hr 02/15/25 06:30 02/15/25 06:40 Sodium Chloride 0.9% IV 02/16/25 06:29 30 mls/hr .Q24H JAVIER Administration PFSH Anesthesia Medical History Clicking of left hip Vaginal delivery Encounter for induction of labor Migraine headache with aura Surgical History H/O tubal ligation Status post labral repair of shoulder LEFT Family History Grandfather Cancer Paternal-unknown Grandfather Cancer Paternal-unknown Heart disease Stroke Mother Heart disease Hypertension Stroke Other Autoimmune disease Diabetes Denies family history of Colon cancer Ovarian cancer Breast cancer Uterine cancer Thyroid disease Social History Smoking and tobacco/nicotine status: never used tobacco/nicotine
[2025-02-15] MEDS: diphenhydrAMINE 50 mg/mL SDV 1mL (08:30)
[2025-02-15] MEDS: acetaminophen 1,000 MG/100 ML PIGGYBACK 400 MG IV (08:49)
--- NOTE | 2025-02-15 09:40 | ANE.PACU2 ---
Inpatient post-anesthesia follow up: Airway intact: Yes Vital signs: Temperature 97 F Pulse Rate 61 Respiratory Rate 18 Blood Pressure 133/91 Pulse Oximetry 99 Oxygen Delivery Me thod Room Air Oxygen Flow Rate Fraction of Inspir ed Oxygen Hydration adequate: Yes Nausea and vomiting: No Pain level: 1 Mental status: Baseline
--- NOTE | 2025-02-15 10:35 | P.OP_ITS ---
Operative Report Date of procedure: February 15, 2025 Pre-op diagnosis: desires permanent sterilization Post-op diagnosis: same Post-op findings: Patient had normal term 5 years after bilateral partial salpingectomy, desires permanent sterilization normal uterus and ovaries remnants of fallopian tubes seen no obvious connection of remnants to uterus Procedure done: laparoscopic bilateral salpingectomy Implants: none Specimens removed/disposition: bilateral fallopian tube segments Surgeon: Toney Miles MD Anesthesia: General Estimated blood loss (mL): 5 Complications: none Findings: Patient had normal term 5 years after bilateral partial salpingectomy, desires permanent sterilization normal uterus and ovaries remnants of fallopian tubes seen no obvious connection of remnants to uterus Condition: stable Disposition: PACU Brief History: 34 y.o. desires permanent sterilization h/o prior laparoscopic bilateral partial salpingectomy in 2018, with pa thologically-proven bilateral fallopian tubes patient became with term delivery in 2024 now for repeat bilateral salpingectomy Procedure: Informed consent was obtained. The patient was taken to the OR and placed on the table. General endotracheal anesthesia was induced. The abdomen was then prepped and draped in the usual fashion. A 5 mm subumbilical skin incision was made. A 5 mm trocar with sheath was then inserted into the peritoneal cavity under direct visualization with the laparoscope. After confirming intraperitoneal position, pneumoperitoneum was achieved. Two separate 5 mm incisions were made in the right and left mid- quadrants. 5 mm trocars with sheaths were then inserted into the peritoneal cavity under direct visualization with the laparoscope. The right fallopian tube remnant was then identified, coagulated and cut using the Ligasure. This was removed via one of the ports. This was sent to pathology. There was no bleeding seen. Similarly, the left fallopian tube remnant was identified and was excised and removed, sent to pathology. There was no bleeding. All instruments were then removed from the peritoneal cavity after the pneumoperitoneum was allowed to escape. The skin incisions were closed using 3- O chromic in subcuticular fashion. Dermabond was applied. The patient was then placed supine and awakened, taken the the PACU in good condition. Postop condition: stable EBL: 5 cc Complications: none Sponge, needles, and instruments counts correct x two
== END 2025-02-15 09:54 | disposition home or self-care (01) ==
PROVIDERS: Student in an Organized Health Care Education/Training Program; PCP Family Medicine; Visit Provider Obstetrics & Gynecology
PROC: (CPT 58661; principal; 2025-02-15 07:50)
DX: Z30.2 Encounter for sterilization (principal); N83.8 Other noninflammatory disorders of ovary, fallopian tube and broad ligament; Z79.899 Other long term (current) drug therapy; Z88.0 Allergy status to penicillin; Z88.2 Allergy status to sulfonamides
CPT/HCPCS: 58661; 81025; 88302; A4216; J0131; J1100; J1200; J2250; J2405; J2704; J3010; J3490; J7030; J9999